=== PATIENT | female | born 1930 | race Caucasian/White ===

== ENCOUNTER 2019-11-10 19:12 | Inpatient (IN) ==
--- OUTSIDE RECORDS SUMMARY | 2019-11-10 19:19 | External Medical Summary | Continuity of Care Document ---
:1930 Author Name George Rock, Provider Address Unavailable Unavailable , Care Team Providers Name Role Phone Edgardo Woo M.D. 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 Refills: 0 Warfarin Sodium 1 MG Oral Tablet; TAKE 2 TABLETS DAILY. Refills: 0 Potassium Chloride ER 10 MEQ Oral Capsul e Extended Release; TAKE 1 CAPSULE DAILY. Start: 23-Feb-2015 Refills: 0 Protonix 40 MG Oral Tablet Delayed Release; TAKE 1 TABLET DA SENDY. Start: 23-Feb-2015 Refills: 0 Premarin 0.625 MG/GM Vaginal Cream Start : 23-Feb-2015 Refills: 0 Fluocinonide 0.05 % External Ointment; A PPLY SPARINGLY TO AFFECTED AREA(S) TWICE DAILY Shweta Ortega Start: 21-Jan-2015 Quantity: 1 60 GM Tube Refills: 2 Carvedilol 12.5 MG Oral Tablet; TAKE 1 TABLET TWICE DAILY. Refills: 0 Lisinopril 10 MG Oral Tablet; TAKE 1 TABLET DAILY DIRECTE D. Refills: 0 Triamcinolone Acetonide 0.1 % External O intment; APPLY AND GENTLY MASSAGE INTO AFFECTED AREA(S) TWICE DAILY. Shweta Woo Start: 06-Apr-2016 Quantity: 3 80 GM Tube Refills: 3 Betamethasone Dipropionate 0.05 % Embossing Press Operator al Ointment; APPLY SPARINGLY TO AFFECTED AREA(S) TWICE DAILY Shweta Ortega Start: 23-Feb-2015 Quantity: 1 50 GM Tube Refills: 2 Procedures History of Vaginal Hysterectomy Status: Completed History of Dilation And Curettage Status : Completed History of Tonsillectomy Status: Complet ed History of Appendectomy Status: Complete d Immunizations Immunizations not documented Family History Mother Family history of Diabetes Mellitus (V18.0) Status: Active Father Family history of Acute Myocardial Infarction (V17.3) Status : Active Social History - Smoking Status Tobacco smoking consumption unknown Never smoked tobacco Plan of Treatment Planned Observations Planned Goals not documented Results No Known Results Results not documented Encounters Appointment; Edgardo Woo M.D. 16-May-2016 10:30 Encounter Diagnosis: Problem not documented
--- NOTE | 2019-11-10 19:28 | Emergency Department Note ---
Impression & Plan Acute GI bleeding, Syncope, Elevated INR ED Provider Note NAME: AUDRA BROOKS AGE: 89 SEX: F : 1930 ARRIVES VIA: Ambulance INFORMANT: Patient, EMS ED PROVIDER(S): Sukhi Hebert DO CHIEF COMPLAINT: Syncope HPI: Patient is an 89-year-old female per report from EMS is a DNR/DNI on hospice who comes in for syncopal episode while on the toilet. EMS notes that she was having dark tarry stool. Patient denies any chest pain shortness of breath nausea vomiting or diarrhea. Denies any dysuria urgency or frequency. She is unsure why she is here. She also does not know why she is on hospice. No other exacerbating or remitting factors. ROS: See above HPI for pertinent positives & negatives. Review of systems was otherwise limited secondary to mentation PAST MEDICAL HISTORY:CVA, GI bleed PAST SURGICAL HISTORY:See Below FAMILY HISTORY:See Below SOCIAL HISTORY:See Below HOME MEDICATIONS:See Below ALLERGIES:See Below VITALS:See Below PHYSICAL EXAMINATION: GENERAL: Sitting up in bed, alert, ill-appearing, malnourished EYE EXAM: normal conjunctiva. OROPHARYNX: no exudate, no erythema, lips, buccal mucosa, and tongue normal and mucous membranes are moist NECK: supple, no nuchal rigidity, no adenopathy, non-tender LUNGS: Diminished bilaterally. Normal chest wall mechanics HEART: no murmurs, S1 normal and S2 normal ABDOMEN: abdomen soft, non-tender, normo-active bowel sounds, no masses, no rebound or guarding. RECTAL: Dark heme tarry stools UPPER EXTREMITIES: upper extremities are grossly normal. LOWER EXTREMITIES: No pitting edema. NEURO EXAM: Awake alert oriented to person and place but not year moving all extremities MEDICAL DECISION MAKING: Patient is an 89-year-old female who presents the ER for syncopal episode associated with dark tarry stools. Patient was found to be hypoxic and hypotensive. Upon arrival she was brought in by EMS. She is a DNR/DNI on hospice. She was found to be hypoxic. She does have dark tarry stools. IV was established blood work was obtained and shows leukocytosis 12,000. Hemoglobin was down to 8.8 off of baseline of 10. INR and PT were undetectable. PTT was elevated at 99. BMP with mild hypokalemia. LFTs bilirubin was unremarkable. Patient was typed and screened. Patient was given IV vitamin K. Prolonged conversation with son and hospice telephone operator. They were able to set up oxygen at home but with the significant elevation INR and taking no blood thinners in the GI bleed of the syncope and hypotension did discuss with the hospitalist for observation to reverse the INR and for close monitoring to make sure that this returns to normal. We will hold on any other aggressive measures or treatment. Triage Nursing notes reviewed. Prior medical records reviewed Vital Signs: reviewed and remarkable for hypoxia Differential diagnosis: Differential diagnosis includes etiologies such as vasovagal event, infection, hypoglycemia, electrolyte abnormalities, cardiac sources, intracerebral event, toxicologic, neurologic, as well as others were entertained. ER treatment provided: See below Diagnostics interpreted by me: ECG: Sinus tachycardia rate of 105 Left axis Poor baseline T wave flattening in the high lateral leads Cardiac Monitoring: Sinus rhythm rate of 75 Laboratory studies: As stated above and show below. Imaging studies: Portable AP upright 1 view of the chest shows no focal infiltrate or pneumothorax. Consultation(s): Dr. Pineda ED COURSE: Procedures: none Critical Care: None Past Med/Surg History Social History Smoking Status: Unknown if ever smoked Allergies Allergies Allergy/AdvReac Type Severity Reaction Status Date / Time Bactrim Allergy UNKNOWN Verified 09/11/13 16:33 naproxen Allergy UNKNOWN Verified 11/10/19 20:04 oxybutynin Allergy UNKNOWN Verified 11/10/19 20:04 sulfamethoxazole Allergy UNKNOWN Verified 11/10/19 20:04 trimethoprim Allergy UNKNOWN Verified 11/10/19 20:04 Home Meds Home Medications Medication Instructions Recorded Confirmed amiodarone 200 mg PO DAILY 11/10/19 11/10/19 lisinopril 5 mg PO DAILY 11/10/19 11/10/19 omeprazole 20 mg PO BID 11/10/19 11/10/19 sertraline 100 mg PO DAILY 11/10/19 11/10/19 Results & Data (ED) Vital Signs Vital Signs - 24 hr 11/10/19 19:12 11/10/19 19:22 11/10/19 19:58 Temperature 36.8 C Temperature Source Oral Pulse Rate 99 H Pulse Rate [Left] Pulse Rate from SpO2 Sensor Pulse Rhythm [Left] Respiratory Rate 15 12 Respiratory Effort / Characteristics Non-Labored Respiratory Depth Normal Respiratory Pattern Regular Blood Pressure 136/85 136/85 Blood Pressure [Right Arm] Blood Pressure Mean 102 95 Blood Pressure Mean [Right Arm] Pulse Oximetry 85 L 97 Oxygen Delivery Method Room Air Nasal Cannula Oxygen Flow Rate 2 Sepsis Recent Fever Within 48 Hours No Sepsis New/Unexplained Change in Mental Status No Sepsis Action Taken by Nursing No Action Required 11/10/19 20:07 11/10/19 20:09 11/10/19 20:15 Temperature Temperature Source Pulse Rate Pulse Rate [Left] 81 Pulse Rate from SpO2 Sensor 82 90 Pulse Rhythm [Left] Regular Respiratory Rate 19 20 15 Respiratory Effort / Characteristics Non-Labored Respiratory Depth Normal Respiratory Pattern Regular Blood Pressure 119/66 81/55 L Blood Pressure [Right Arm] 119/66 Blood Pressure Mean 76 61 Blood Pressure Mean [Right Arm] 83 Pulse Oximetry 100 100 100 Oxygen Delivery Method Nasal Cannula Oxygen Flow Rate 2 Sepsis Recent Fever Within 48 Hours Sepsis New/Unexplained Change in Mental Status Sepsis Action Taken by Nursing 11/10/19 20:30 11/10/19 20:45 Temperature Temperature Source Pulse Rate 75 Pulse Rate [Left] Pulse Rate from SpO2 Sensor 67 75 Pulse Rhythm [Left] Respiratory Rate 18 15 Respiratory Effort / Characteristics Respiratory Depth Respiratory Pattern Blood Pressure 112/53 L 129/58 L Blood Pressure [Right Arm] Blood Pressure Mean 78 90 Blood Pressure Mean [Right Arm] Pulse Oximetry 99 100 Oxygen Delivery Method Oxygen Flow Rate Sepsis Recent Fever Within 48 Hours Sepsis New/Unexplained Change in Mental Status Sepsis Action Taken by Nursing Laboratory Data Result diagrams: 11/10/19 19:59 11/10/19 19:59 Lab Results 11/10/19 11/10/19 11/10/19 Range/Units 19:41 19:59 19:59 WBC 12.84 H (4.8-10.8) K/uL RBC 3.55 L (4.2-5.4) M/uL Hgb 8.8 L (12.0-16.0) g/dL Hct 28.1 L (37-47) % MCV 79.2 L (80-100) fL MCH 24.8 L (25-34) pg MCHC 31.3 L (32-36) g/dL RDW Std Deviation 51.3 H (36.4-46.3) fL RDW Coeff of Avtar 17.8 H (11.5-14.5) % Plt Count 241 (130-400) K/uL MPV 9.1 (7.4-10.4) fL Immature Gran % (Auto) 0.5 % Neut % (Auto) 83.0 % Lymph % (Auto) 9.7 % Billings % (Auto) 6.2 % Eos % (Auto) 0.5 % Baso % (Auto) 0.1 % Immature Gran # (Auto) 0.06 H (0.00-0.02) K/uL Neut # (Auto) 10.66 H (1.4-6.5) K/uL Lymph # (Auto) 1.25 (1.2-3.4) K/uL Billings # (Auto) 0.80 H (0.11-0.59) K/uL Eos # (Auto) 0.06 (0-0.5) K/uL Baso # (Auto) 0.01 (0-0.2) K/uL PT (9.0-12.0) Seconds INR (0.9-1.1) APTT (21.0-31.0) Seconds PTT Ratio Sodium (136-145) mmol/L Potassium (3.5-5.1) mmol/L Chloride (98-107) mmol/L Carbon Dioxide (21-32) mmol/L Anion Gap (3-11) BUN (7-18) mg/dl Creatinine (0.6-1.2) mg/dl Est Cr Clr Drug Dosing Est GFR ( Amer) Est GFR (Non-Af Amer) BUN/Creatinine Ratio (10-20) Glucose (70-99) mg/dl Calcium (8.5-10.1) mg/dl Total Bilirubin (0.2-1) mg/dl AST (15-37) U/L ALT (12-78) U/L Alkaline Phosphatase (45-117) U/L Total Protein (6.4-8.2) gm/dl Albumin (3.4-5.0) gm/dl Globulin (2.5-4.0) gm/dl Albumin/Globulin Ratio (0.9-2) POC Stool Occult Blood Positive A (Negative) Blood Type O Positive Antibody Screen NEGATIVE 11/10/19 11/10/19 Range/Units 19:59 19:59 WBC (4.8-10.8) K/uL RBC (4.2-5.4) M/uL Hgb (12.0-16.0) g/dL Hct (37-47) % MCV (80-100) fL MCH (25-34) pg MCHC (32-36) g/dL RDW Std Deviation (36.4-46.3) fL RDW Coeff of Avtar (11.5-14.5) % Plt Count (130-400) K/uL MPV (7.4-10.4) fL Immature Gran % (Auto) % Neut % (Auto) % Lymph % (Auto) % Billings % (Auto) % Eos % (Auto) % Baso % (Auto) % Immature Gran # (Auto) (0.00-0.02) K/uL Neut # (Auto) (1.4-6.5) K/uL Lymph # (Auto) (1.2-3.4) K/uL Billings # (Auto) (0.11-0.59) K/uL Eos # (Auto) (0-0.5) K/uL Baso # (Auto) (0-0.2) K/uL PT > 90.0 H (9.0-12.0) Seconds INR > 9.7 H* (0.9-1.1) APTT 88.3 H* (21.0-31.0) Seconds PTT Ratio 3.2 Sodium 143 (136-145) mmol/L Potassium 2.6 L (3.5-5.1) mmol/L Chloride 105 (98-107) mmol/L Carbon Dioxide 31 (21-32) mmol/L Anion Gap 7.0 (3-11) BUN 25 H (7-18) mg/dl Creatinine 0.97 (0.6-1.2) mg/dl Est Cr Clr Drug Dosing Not Reportable Est GFR ( Amer) 60.9 Est GFR (Non-Af Amer) 52.5 BUN/Creatinine Ratio 26.3 H (10-20) Glucose 135 H (70-99) mg/dl Calcium 8.1 L (8.5-10.1) mg/dl Total Bilirubin 0.4 (0.2-1) mg/dl AST 51 H (15-37) U/L ALT 38 (12-78) U/L Alkaline Phosphatase 83 (45-117) U/L Total Protein 5.8 L (6.4-8.2) gm/dl Albumin 2.3 L (3.4-5.0) gm/dl Globulin 3.5 (2.5-4.0) gm/dl Albumin/Globulin Ratio 0.7 L (0.9-2) POC Stool Occult Blood (Negative) Blood Type Antibody Screen Administered Medications Discontinued Medications Sodium Chloride (Nss) 500 mls @ 999 mls/hr IV .Q31M ALEE Stop: 11/10/19 20:00 Last Infusion: 11/10/19 20:45 Dose: 0 mls/hr Documented by: [id number] Admin: 11/10/19 20:09 Dose: 999 mls/hr Documented by: [id number] Phytonadione 10 mg/ Sodium (Chloride) 51 mls @ 102 mls/hr IV ONE ONE Stop: 11/10/19 21:16 Last Admin: 11/10/19 21:36 Dose: 102 mls/hr Documented by: [id number] Discharge Plan Visit Data Chief Complaint: Syncope Stated Complaint: SYNCOPE, DARK TARRY STOOL ED Provider: Sukhi Hebert Discharge Problem: Acute GI bleeding, Syncope, Elevated INR Forms Stand Alone Forms: [facility] Prescriptions Prescriptions: No Action amiodarone 200 mg tablet 200 mg PO DAILY RF: 0 sertraline 100 mg tablet 100 mg PO DAILY RF: 0 omeprazole 20 mg capsule,delayed release(DR/EC) 20 mg PO BID RF: 0 lisinopril 5 mg tablet 5 mg PO DAILY RF: 0 Discharge Problem: Syncope Qualifiers: Syncope type: unspecified Qualified Code(s): R55 - Syncope and collapse
[2019-11-10] MEDS ORDERED: SODIUM CHLORIDE 0.9% 500 ML IV SCH (19:30)
[2019-11-10 20:11] LABS: Basophils # (auto) 0.01 K/uL (0-0.2); Basophils % (auto) 0.1 %; Eosinophils # (auto) 0.06 K/uL (0-0.5); Eosinophils % (auto) 0.5 %; Hematocrit (blood only) 28.1 % (37-47); Hemoglobin 8.8 g/dL (12.0-16.0); Immature Granulocytes # (auto) 0.06 K/uL (0.00-0.02); Immature Granulocytes % (auto) 0.5 %; Lymphocytes # (auto) 1.25 K/uL (1.2-3.4); Lymphocytes % (auto) 9.7 %; Mean Corpuscular Hemoglobin 24.8 pg (25-34); Mean Corpuscular Hgb Conc 31.3 g/dL (32-36); Mean Corpuscular Volume 79.2 fL (80-100); Mean Platelet Volume 9.1 fL (7.4-10.4); Monocytes % (auto) 6.2 %; Neutrophils # (auto) 10.66 K/uL (1.4-6.5); Platelet Count 241 K/uL (130-400); RDW Coefficient of Variation 17.8 % (11.5-14.5); RDW Standard Deviation 51.3 fL (36.4-46.3); Red Blood Count 3.55 M/uL (4.2-5.4); White Blood Count 12.84 K/uL (4.8-10.8)
[2019-11-10 20:29] LABS: Alanine Aminotransferase 38 U/L (12-78); Albumin Level 2.3 gm/dl (3.4-5.0); Aspartate Aminotransferase 51 U/L (15-37); BUN Creatinine Ratio 26.3 (10-20); Blood Urea Nitrogen 25 mg/dl (7-18); Calcium 8.1 mg/dl (8.5-10.1); Carbon Dioxide 31 mmol/L (21-32); Chloride 105 mmol/L (98-107); Est GFR (African American) 60.9; Est GFR (Non-African American) 52.5; Glucose 135 mg/dl (70-99); Potassium 2.6 mmol/L (3.5-5.1); Sodium 143 mmol/L (136-145)
[2019-11-10 20:31] LABS: Partial Thromboplastin Ratio 3.2; Prothrombin Time > 90.0 Seconds (9.0-12.0)
[2019-11-10 20:32] LABS: Albumin Globulin Ratio 0.7 (0.9-2); Alkaline Phosphatase 83 U/L (45-117); Bilirubin,Total 0.4 mg/dl (0.2-1); Globulin 3.5 gm/dl (2.5-4.0); Total Protein 5.8 gm/dl (6.4-8.2)
[2019-11-10 20:38] LABS: Partial Thromboplastin Time 88.3 Seconds (21.0-31.0)
--- NOTE | 2019-11-10 20:39 | XRay Report ---
XR chest 1V portable HISTORY: Syncope. COMPARISON: Chest 05/28/2019. FINDINGS: The lungs are clear. The heart is normal in size. No pleural effusions. No pneumothorax. Ol d, healed right-sided rib fractures. IMPRESSION: No acute process. ACT 112: Negative or not required by law. Electronically signed by: Danilo Gutierrez M.D. 11/10/2019 8:38 PM
[2019-11-10] MEDS ORDERED: PHYTONADIONE 10 MG in SODIUM CHLORIDE 0.9% 50 ML IV ONE (20:47)
[2019-11-10 21:30] LABS: INR > 9.7 (0.9-1.1)
[2019-11-10] MEDS ORDERED: PANTOPRAZOLE BOLUS/DRIP 1 EA IV STA (22:27)
--- NOTE | 2019-11-10 22:29 | History & Physical Report ---
Date of Service November 10, 2019 Assessment & Plan (1) Unresponsiveness: Secondary to transient hypotension secondary to UGIB (differentials include gastritis, PUD) Coagulopathy despite cessation of Coumadin Rx last week Anemia secondary to above hx CAD status post stent PVD as per records atrial fibrillation/atrial flutter, rate controlled, INR persistently elevated despite being off Coumadin for a week hypertension, stable history embolic CVA Hyperglycemia rule out DM Hypokalemia Medical telemetry IV PPI No GI consultations for endoscopy and no CT imaging as per son's request upon discussion of goals of care. Serial H&H, transfuse PRBC if hemoglobin less than 8. Check hemoglobin A1c Replace electrolytes DVT prophylaxis. SCDs when INR less than 2 DNR Patient son requesting updates from providers. Mr. Jareth Duncan, contact #[phone]. Text document was generated using [employer] voice recognition software. It may contain grammatical or spelling errors. Kindly contact undersigned for clarification of any documentation item in question. History of Present Illness Chief Complaint: Syncope Primary Care Provider: Alberto Huertas DO History obtained from patient, family, and records. Medical history significant for CAD status post stent, PVD as per records, atrial fibrillation/atrial flutter currently off Coumadin, hypertension, hyperlipidemia, history CVA, skin cancer as per records, hx GERD. Remote confinement 2013 under orthopedic service for elective right knee surgery. 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 Patient discharged on Coumadin. Since August 2019, consistent supratherapeutic INR noted on outpatient testing. Poor appetite the last few weeks as per son. 2 weeks ago, patient brought to [facility] ER for GI bleed. Found to have a high INR. PCP and family decided to discontinue Coumadin and to make arrangements for home hospice. Few days ago patient complaining of achy tolerable abdominal discomfort. Melanotic stools noted the last 2 days. Some nausea, no emesis as per son. Patient became unresponsive as she was being helped to the commode by family tonight. Staring blankly into space for about 5 minutes as per son. No witnessed GTC seizures. Patient denies chest pain, S OB. Usual headache symptoms since stroke as per patient. SBP reported to be 50s upon arrival of EMS as per records. Patient brought to the ER for evaluation. Vitamin K given for INR greater than 9.7. 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 Surgical History : Knee surgery, appendectomy, tonsillectomy/adenoidectomy, hysterectomy Family History : Heart disease, stroke Personal/Social history : Non-smoker, no EtOH intake, retired [employer] employee Allergies Allergy/AdvReac Type Severity Reaction Status Date / Time Bactrim Allergy UNKNOWN Verified 09/11/13 16:33 naproxen Allergy UNKNOWN Verified 11/10/19 20:04 oxybutynin Allergy UNKNOWN Verified 11/10/19 20:04 sulfamethoxazole Allergy UNKNOWN Verified 11/10/19 20:04 trimethoprim Allergy UNKNOWN Verified 11/10/19 20:04 Home Medications Home Medications Medication Instructions Recorded Confirmed Type amiodarone 200 mg PO DAILY 11/10/19 11/10/19 History lisinopril 5 mg PO DAILY 11/10/19 11/10/19 History omeprazole 20 mg PO BID 11/10/19 11/10/19 History sertraline 100 mg PO DAILY 11/10/19 11/10/19 History Past Med/Surg History Social History Smoking Status: Unknown if ever smoked Review of Systems Review of Systems: As per HPI, all 10 systems reviewed, all other ROS negative Physical Exam Physical Exam: GENERAL: Comfortable, slightly hard of hearing, oriented to day and year, no respiratory distress SKIN: Pallor , warm HEENT: Pale palpebral conjunctivae, no ptosis, dry buccal mucosa NECK : Supple, no tenderness CHEST : CTA, no tenderness HEART : Irregular, systolic murmur ABDOMEN: Some distention, no overt tenderness EXTREMITIES : Minimal LE swelling, no LE tenderness, no other conspicuous deformities noted NEUROLOGIC : Coherent, no facial asymmetry, mild hearing impairment, no other gross focality Results & Data Results & Data ([facility]) Vital Signs (Past 12 Hours) Vital Signs Temp Pulse Pulse Resp BP BP Pulse Ox 11/10/19 22:03 15 102/47 L 99 11/10/19 21:45 80 16 108/56 L 99 11/10/19 21:30 81 17 112/64 99 11/10/19 21:15 76 12 115/56 L 100 11/10/19 21:00 77 13 115/65 100 11/10/19 20:45 75 15 129/58 L 100 11/10/19 20:30 18 112/53 L 99 11/10/19 20:15 15 81/55 L 100 11/10/19 20:09 81 20 119/66 100 11/10/19 20:07 19 119/66 100 11/10/19 19:58 97 11/10/19 19:22 12 136/85 11/10/19 19:12 36.8 C 99 H 15 136/85 85 L Laboratory Results Laboratory Results WBC 12.84 K/uL (4.8-10.8) H 11/10/19 19:59 RBC 3.55 M/uL (4.2-5.4) L 11/10/19 19:59 Hgb 8.8 g/dL (12.0-16.0) L 11/10/19 19:59 Hct 28.1 % (37-47) L 11/10/19 19:59 MCV 79.2 fL (80-100) L 11/10/19 19:59 MCH 24.8 pg (25-34) L 11/10/19 19:59 MCHC 31.3 g/dL (32-36) L 11/10/19 19:59 RDW Std Deviation 51.3 fL (36.4-46.3) H 11/10/19 19:59 RDW Coeff of Avtar 17.8 % (11.5-14.5) H 11/10/19 19:59 Plt Count 241 K/uL (130-400) 11/10/19 19:59 MPV 9.1 fL (7.4-10.4) 11/10/19 19:59 Immature Gran % (Auto) 0.5 % 11/10/19 19:59 Neut % (Auto) 83.0 % 11/10/19 19:59 Lymph % (Auto) 9.7 % 11/10/19 19:59 Vance % (Auto) 6.2 % 11/10/19 19:59 Eos % (Auto) 0.5 % 11/10/19 19:59 Baso % (Auto) 0.1 % 11/10/19 19:59 Immature Gran # (Auto) 0.06 K/uL (0.00-0.02) H 11/10/19 19:59 Neut # (Auto) 10.66 K/uL (1.4-6.5) H 11/10/19 19:59 Lymph # (Auto) 1.25 K/uL (1.2-3.4) 11/10/19 19:59 Vance # (Auto) 0.80 K/uL (0.11-0.59) H 11/10/19 19:59 Eos # (Auto) 0.06 K/uL (0-0.5) 11/10/19 19:59 Baso # (Auto) 0.01 K/uL (0-0.2) 11/10/19 19:59 PT > 90.0 Seconds (9.0-12.0) H 11/10/19 19:59 INR > 9.7 (0.9-1.1) H* 11/10/19 19:59 APTT 88.3 Seconds (21.0-31.0) H* 11/10/19 19:59 PTT Ratio 3.2 11/10/19 19:59 Sodium 143 mmol/L (136-145) 11/10/19 19:59 Potassium 2.6 mmol/L (3.5-5.1) L 11/10/19 19:59 Chloride 105 mmol/L (98-107) 11/10/19 19:59 Carbon Dioxide 31 mmol/L (21-32) 11/10/19 19:59 Anion Gap 7.0 (3-11) 11/10/19 19:59 BUN 25 mg/dl (7-18) H 11/10/19 19:59 Creatinine 0.97 mg/dl (0.6-1.2) 11/10/19 19:59 Est Cr Clr Drug Dosing Not Reportable 11/10/19 19:59 Est GFR ( Amer) 60.9 11/10/19 19:59 Est GFR (Non-Af Amer) 52.5 11/10/19 19:59 BUN/Creatinine Ratio 26.3 (10-20) H 11/10/19 19:59 Glucose 135 mg/dl (70-99) H 11/10/19 19:59 Calcium 8.1 mg/dl (8.5-10.1) L 11/10/19 19:59 Total Bilirubin 0.4 mg/dl (0.2-1) 11/10/19 19:59 AST 51 U/L (15-37) H 11/10/19 19:59 ALT 38 U/L (12-78) 11/10/19 19:59 Alkaline Phosphatase 83 U/L (45-117) 11/10/19 19:59 Total Protein 5.8 gm/dl (6.4-8.2) L 11/10/19 19:59 Albumin 2.3 gm/dl (3.4-5.0) L 11/10/19 19:59 Globulin 3.5 gm/dl (2.5-4.0) 11/10/19 19:59 Albumin/Globulin Ratio 0.7 (0.9-2) L 11/10/19 19:59 POC Stool Occult Blood Positive (Negative) A 11/10/19 19:41 Blood Type O Positive 11/10/19 19:59 Antibody Screen NEGATIVE 11/10/19 19:59 Diagnostic Findings Chest x-ray : No acute process EKG as per my interpretation : Rate 105, A. fib, LAD, LAFB, inferior infarct, diffuse T wave flattening
[2019-11-10] MEDS ORDERED: PANTOprazole 80 MG in DEXTROSE 5% 100 ML IV STA (22:31)
[2019-11-10 22:56] LABS: Magnesium 1.4 mg/dl (1.8-2.4)
[2019-11-10] MEDS ORDERED: TRAMADOL HCL 50 MG TABLET PO PRN (23:29)
[2019-11-10] MEDS ORDERED: POTASSIUM CHLORIDE 40 MEQ in SODIUM CHLORIDE 0.45 % 1,000 ML IV ONE (23:29)
[2019-11-10] MEDS ORDERED: ACETAMINOPHEN 325 MG TAB PO PRN (23:29)
[2019-11-10] MEDS ORDERED: MoRPHine SULFATE 2 MG/ML CARP IV PRN (23:30)
[2019-11-10] MEDS: POTASSIUM CHLORIDE 20 MEQ TABCR PO STA ×2 (23:31→23:57)
[2019-11-11] MEDS: PANTOprazole 40 MG in DEXTROSE 5% 100 ML IV SCH ×5 (00:08→19:13)
[2019-11-11] MEDS: POTASSIUM CHLORIDE / WTR 10 MEQ/100 ML PLCT IV SCH ×11 (00:11→12:04)
[2019-11-11] MEDS: MAGNESIUM SULFATE / D5W 1 GM/100 ML BAG IV SCH ×3 (00:12→02:14)
[2019-11-11 00:50] LABS: Hematocrit (blood only) 28.3 % (37-47); Hemoglobin 8.8 g/dL (12.0-16.0)
[2019-11-11 05:45] LABS: Eosinophils # (auto) 0.09 K/uL (0-0.5); Eosinophils % (auto) 0.8 %; Hematocrit (blood only) 22.7 % (37-47); Hemoglobin 7.2 g/dL (12.0-16.0); Immature Granulocytes # (auto) 0.05 K/uL (0.00-0.02); Immature Granulocytes % (auto) 0.4 %; Lymphocytes # (auto) 1.66 K/uL (1.2-3.4); Lymphocytes % (auto) 14.2 %; Mean Corpuscular Hgb Conc 31.7 g/dL (32-36); Mean Corpuscular Volume 78.8 fL (80-100); Mean Platelet Volume 9.1 fL (7.4-10.4); Monocytes # (auto) 0.63 K/uL (0.11-0.59); Monocytes % (auto) 5.4 %; Neutrophils # (auto) 9.29 K/uL (1.4-6.5); Neutrophils % (auto) 79.2 %; Platelet Count 196 K/uL (130-400); RDW Coefficient of Variation 17.8 % (11.5-14.5); RDW Standard Deviation 51.5 fL (36.4-46.3); Red Blood Count 2.88 M/uL (4.2-5.4); White Blood Count 11.72 K/uL (4.8-10.8)
[2019-11-11 06:03] LABS: INR 1.4 (0.9-1.1); Prothrombin Time 14.3 Seconds (9.0-12.0)
[2019-11-11 06:17] LABS: RBC Morphology Unremarkable
[2019-11-11] MEDS ORDERED: SODIUM CHLORIDE 0.9% 250 ML IV PRN (06:17)
[2019-11-11 06:20] LABS: BUN Creatinine Ratio 28.3 (10-20); Calcium 7.8 mg/dl (8.5-10.1); Creatinine Clr Calc Pharmacy 40.6 ml/min; Est GFR (African American) 69.4; Est GFR (Non-African American) 59.9; Magnesium 2.7 mg/dl (1.8-2.4); Potassium 2.8 mmol/L (3.5-5.1)
[2019-11-11 06:37] LABS: Estimated Average Glucose 134 mg/dl; Hemoglobin A1C 6.3 % (4.5-5.6)
[2019-11-11] MEDS: AMIODARONE 200 MG TAB PO SCH (08:14)
[2019-11-11] MEDS: SERTRALINE HCL 100 MG TABLET PO SCH (08:15)
[2019-11-11] MEDS ORDERED: lisinopriL 5 MG TAB PO SCH (09:00)
--- NOTE | 2019-11-11 09:38 | Electrocardiogram Report ---
Test Reason : Blood Pressure : / mmHG Vent. Rate : 105 BPM Atrial Rate : 097 BPM P-R Int : 000 ms QRS Dur : 090 ms QT Int : 504 ms P-R-T Axes : 000 -09 053 degrees QTc Int : 666 ms Poor data quality, interpretation may be adversely affected Sinus tachycardia Septal infarct , age undetermined Inferior infarct , age undetermined Abnormal ECG When compared with ECG of 20-AUG-2013 10:19, Significant changes have occurred Confirmed by Terry Newton ([id number]) on 11/11/2019 9:37:57 AM Referred By: REFERRED SELF Confirmed By:Terry Newton
--- NOTE | 2019-11-11 12:48 | Hospitalist Progress Note ---
Date of Service November 11, 2019 Assessment & Plan (1) Unresponsiveness: Unresponsive secondary to transient hypotension secondary to UGIB (differentials include gastritis, PUD) Acute blood loss anemia secondary to GI bleed Supratherapeutic INR/ coagulopathy (secondary to past coumadin use, poor oral intake) No GI consultations for endoscopy and no CT imaging as per son's request upon discussion of goals of care. Required transfusion of 1 pRBC, Hgb this AM 7.2, now above 9, cont. 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 to GI bleed - hold lisinopril Hyperglycemia rule out DM Check hemoglobin A1c DVT prophylaxis. SCDs when INR less than 2 DNR Disposition: pt home w/ home hospice prior to admission, after stabilization of bleed, and profound electrolyte abnormalities, likely return home Patient's son, Mr. Jareth Duncan, can be contacted at . Updated on pt' clinical status. Admission and Anticipated Discharge Date Admission Date: November 10, 2019 Subjective Pt is lying in bed, in NAD. Appears tired. She is alert and oriented, says lately she could not eat much, would get nausea after eating. Denies any fever, chills, chest pain, shortness of breath, abd. pain, nausea, vomiting. Hgb this AM 7.2, received 1 unit of pRBCs, Hgb then over 9. Review of Systems Review of Systems: All systems reviewed & are unremarkable except as noted in HPI & below Constitutional: no fever and no chills Respiratory: no cough and no dyspnea Cardiovascular: no chest pain and no palpitations Gastrointestinal: + melena; no abdominal pain, no nausea and no vomiting Physical Exam Physical Exam: GENERAL: elderly thin pale female, lying in bed in NAD HEENT: NC/AT, EOMI, pale palpebral conjunctivae NECK : Supple, no tenderness CHEST : CTAB, no wheezing or rhonchi noted HEART : Irregular, + soft systolic murmur ABDOMEN: Some distention, no overt tenderness EXTREMITIES : no LE edema, warm well perfused NEUROLOGIC : alert and oriented, answers questions appropriately, no facial asymmetry, speech fluent SKIN: Pallor , warm Results & Data Results & Data ([facility]) Vital Signs (Past 12 Hours) Vital Signs Temp Pulse Pulse Resp BP BP Pulse Ox 11/11/19 12:20 36.9 C 72 18 132/79 98 11/11/19 11:30 36.8 C 75 18 101/62 97 11/11/19 11:03 36.8 C 75 18 101/62 97 11/11/19 10:30 36.6 C 73 18 103/65 98 11/11/19 09:30 36.5 C 76 18 107/66 98 11/11/19 09:00 36.5 C 76 16 92/58 L 93 11/11/19 08:45 36.7 C 87 18 119/64 95 11/11/19 08:44 36.7 C 87 18 119/64 95 11/11/19 08:30 36.7 C 90 18 97/53 L 97 11/11/19 07:31 37.2 C 77 18 86/52 L 97 11/11/19 03:41 36.6 C 81 18 96/60 L 98 11/11/19 02:51 75 Laboratory Results 11/11/19 11/11/19 11/11/19 Range/Units 05:19 05:19 05:19 WBC 11.72 H (4.8-10.8) K/uL RBC 2.88 L (4.2-5.4) M/uL Hgb 7.2 L (12.0-16.0) g/dL Hct 22.7 L (37-47) % MCV 78.8 L (80-100) fL MCH 25.0 (25-34) pg MCHC 31.7 L (32-36) g/dL RDW Std Deviation 51.5 H (36.4-46.3) fL RDW Coeff of Avtar 17.8 H (11.5-14.5) % Plt Count 196 (130-400) K/uL MPV 9.1 (7.4-10.4) fL Immature Gran % (Auto) 0.4 % Neut % (Auto) 79.2 % Lymph % (Auto) 14.2 % Gladwin % (Auto) 5.4 % Eos % (Auto) 0.8 % Baso % (Auto) 0.0 % Immature Gran # (Auto) 0.05 H (0.00-0.02) K/uL Neut # (Auto) 9.29 H (1.4-6.5) K/uL Lymph # (Auto) 1.66 (1.2-3.4) K/uL Gladwin # (Auto) 0.63 H (0.11-0.59) K/uL Eos # (Auto) 0.09 (0-0.5) K/uL Baso # (Auto) 0.00 (0-0.2) K/uL RBC Morphology Unremarkable PT 14.3 H (9.0-12.0) Seconds INR 1.4 H (0.9-1.1) APTT (21.0-31.0) Seconds PTT Ratio Sodium 142 (136-145) mmol/L Potassium 2.8 L (3.5-5.1) mmol/L Chloride 105 (98-107) mmol/L Carbon Dioxide 32 (21-32) mmol/L Anion Gap 5.0 (3-11) BUN 25 H (7-18) mg/dl Creatinine 0.87 (0.6-1.2) mg/dl Est Cr Clr Drug Dosing 40.6 Est GFR ( Amer) 69.4 Est GFR (Non-Af Amer) 59.9 BUN/Creatinine Ratio 28.3 H (10-20) Glucose 131 H (70-99) mg/dl Estimat Average Glucose mg/dl Hemoglobin A1c (4.5-5.6) % Calcium 7.8 L (8.5-10.1) mg/dl Magnesium 2.7 H (1.8-2.4) mg/dl Total Bilirubin (0.2-1) mg/dl AST (15-37) U/L ALT (12-78) U/L Alkaline Phosphatase (45-117) U/L Total Protein (6.4-8.2) gm/dl Albumin (3.4-5.0) gm/dl Globulin (2.5-4.0) gm/dl Albumin/Globulin Ratio (0.9-2) TSH (0.300-4.500) uIu/ml POC Stool Occult Blood (Negative) Blood Type Antibody Screen Crossmatch 11/11/19 11/11/19 11/10/19 Range/Units 05:19 00:03 19:59 WBC (4.8-10.8) K/uL RBC (4.2-5.4) M/uL Hgb 8.8 L (12.0-16.0) g/dL Hct 28.3 L (37-47) % MCV (80-100) fL MCH (25-34) pg MCHC (32-36) g/dL RDW Std Deviation (36.4-46.3) fL RDW Coeff of Avtar (11.5-14.5) % Plt Count (130-400) K/uL MPV (7.4-10.4) fL Immature Gran % (Auto) % Neut % (Auto) % Lymph % (Auto) % Gladwin % (Auto) % Eos % (Auto) % Baso % (Auto) % Immature Gran # (Auto) (0.00-0.02) K/uL Neut # (Auto) (1.4-6.5) K/uL Lymph # (Auto) (1.2-3.4) K/uL Gladwin # (Auto) (0.11-0.59) K/uL Eos # (Auto) (0-0.5) K/uL Baso # (Auto) (0-0.2) K/uL RBC Morphology PT (9.0-12.0) Seconds INR (0.9-1.1) APTT (21.0-31.0) Seconds PTT Ratio Sodium 143 (136-145) mmol/L Potassium 2.6 L (3.5-5.1) mmol/L Chloride 105 (98-107) mmol/L Carbon Dioxide 31 (21-32) mmol/L Anion Gap 7.0 (3-11) BUN 25 H (7-18) mg/dl Creatinine 0.97 (0.6-1.2) mg/dl Est Cr Clr Drug Dosing Not Reportable Est GFR ( Amer) 60.9 Est GFR (Non-Af Amer) 52.5 BUN/Creatinine Ratio 26.3 H (10-20) Glucose 135 H (70-99) mg/dl Estimat Average Glucose 134 mg/dl Hemoglobin A1c 6.3 H (4.5-5.6) % Calcium 8.1 L (8.5-10.1) mg/dl Magnesium 1.4 L (1.8-2.4) mg/dl Total Bilirubin 0.4 (0.2-1) mg/dl AST 51 H (15-37) U/L ALT 38 (12-78) U/L Alkaline Phosphatase 83 (45-117) U/L Total Protein 5.8 L (6.4-8.2) gm/dl Albumin 2.3 L (3.4-5.0) gm/dl Globulin 3.5 (2.5-4.0) gm/dl Albumin/Globulin Ratio 0.7 L (0.9-2) TSH 2.620 (0.300-4.500) uIu/ml POC Stool Occult Blood (Negative) Blood Type Antibody Screen Crossmatch 11/10/19 11/10/19 11/10/19 Range/Units 19:59 19:59 19:59 WBC 12.84 H (4.8-10.8) K/uL RBC 3.55 L (4.2-5.4) M/uL Hgb 8.8 L (12.0-16.0) g/dL Hct 28.1 L (37-47) % MCV 79.2 L (80-100) fL MCH 24.8 L (25-34) pg MCHC 31.3 L (32-36) g/dL RDW Std Deviation 51.3 H (36.4-46.3) fL RDW Coeff of Avtar 17.8 H (11.5-14.5) % Plt Count 241 (130-400) K/uL MPV 9.1 (7.4-10.4) fL Immature Gran % (Auto) 0.5 % Neut % (Auto) 83.0 % Lymph % (Auto) 9.7 % Gladwin % (Auto) 6.2 % Eos % (Auto) 0.5 % Baso % (Auto) 0.1 % Immature Gran # (Auto) 0.06 H (0.00-0.02) K/uL Neut # (Auto) 10.66 H (1.4-6.5) K/uL Lymph # (Auto) 1.25 (1.2-3.4) K/uL Gladwin # (Auto) 0.80 H (0.11-0.59) K/uL Eos # (Auto) 0.06 (0-0.5) K/uL Baso # (Auto) 0.01 (0-0.2) K/uL RBC Morphology PT > 90.0 H (9.0-12.0) Seconds INR > 9.7 H* (0.9-1.1) APTT 88.3 H* (21.0-31.0) Seconds PTT Ratio 3.2 Sodium (136-145) mmol/L Potassium (3.5-5.1) mmol/L Chloride (98-107) mmol/L Carbon Dioxide (21-32) mmol/L Anion Gap (3-11) BUN (7-18) mg/dl Creatinine (0.6-1.2) mg/dl Est Cr Clr Drug Dosing Est GFR ( Amer) Est GFR (Non-Af Amer) BUN/Creatinine Ratio (10-20) Glucose (70-99) mg/dl Estimat Average Glucose mg/dl Hemoglobin A1c (4.5-5.6) % Calcium (8.5-10.1) mg/dl Magnesium (1.8-2.4) mg/dl Total Bilirubin (0.2-1) mg/dl AST (15-37) U/L ALT (12-78) U/L Alkaline Phosphatase (45-117) U/L Total Protein (6.4-8.2) gm/dl Albumin (3.4-5.0) gm/dl Globulin (2.5-4.0) gm/dl Albumin/Globulin Ratio (0.9-2) TSH (0.300-4.500) uIu/ml POC Stool Occult Blood (Negative) Blood Type O Positive Antibody Screen NEGATIVE Crossmatch See Detail 11/10/19 Range/Units 19:41 WBC (4.8-10.8) K/uL RBC (4.2-5.4) M/uL Hgb (12.0-16.0) g/dL Hct (37-47) % MCV (80-100) fL MCH (25-34) pg MCHC (32-36) g/dL RDW Std Deviation (36.4-46.3) fL RDW Coeff of Avtar (11.5-14.5) % Plt Count (130-400) K/uL MPV (7.4-10.4) fL Immature Gran % (Auto) % Neut % (Auto) % Lymph % (Auto) % Gladwin % (Auto) % Eos % (Auto) % Baso % (Auto) % Immature Gran # (Auto) (0.00-0.02) K/uL Neut # (Auto) (1.4-6.5) K/uL Lymph # (Auto) (1.2-3.4) K/uL Gladwin # (Auto) (0.11-0.59) K/uL Eos # (Auto) (0-0.5) K/uL Baso # (Auto) (0-0.2) K/uL RBC Morphology PT (9.0-12.0) Seconds INR (0.9-1.1) APTT (21.0-31.0) Seconds PTT Ratio Sodium (136-145) mmol/L Potassium (3.5-5.1) mmol/L Chloride (98-107) mmol/L Carbon Dioxide (21-32) mmol/L Anion Gap (3-11) BUN (7-18) mg/dl Creatinine (0.6-1.2) mg/dl Est Cr Clr Drug Dosing Est GFR ( Amer) Est GFR (Non-Af Amer) BUN/Creatinine Ratio (10-20) Glucose (70-99) mg/dl Estimat Average Glucose mg/dl Hemoglobin A1c (4.5-5.6) % Calcium (8.5-10.1) mg/dl Magnesium (1.8-2.4) mg/dl Total Bilirubin (0.2-1) mg/dl AST (15-37) U/L ALT (12-78) U/L Alkaline Phosphatase (45-117) U/L Total Protein (6.4-8.2) gm/dl Albumin (3.4-5.0) gm/dl Globulin (2.5-4.0) gm/dl Albumin/Globulin Ratio (0.9-2) TSH (0.300-4.500) uIu/ml POC Stool Occult Blood Positive A (Negative) Blood Type Antibody Screen Crossmatch Medications Administered Current Inpatient Medications Acetaminophen (Tylenol) 650 mg PO Q4H PRN PRN Reason: Pain or Fever Stop: 12/10/19 23:28 Amiodarone HCl (Cordarone) 200 mg PO DAILY PENDING SALE TO [facility] Stop: 12/11/19 08:59 Last Admin: 11/11/19 08:14 Dose: Not Given Documented by: Pantoprazole Sodium 40 mg/ (Dextrose) 100 mls @ 20 mls/hr IV Q5H ALEE Stop: 12/10/19 22:29 Last Admin: 11/11/19 08:13 Dose: 20 mls/hr Documented by: Promethazine HCl 12.5 mg/ (Sodium Chloride) 50.5 mls @ 202 mls/hr IV Q6H PRN PRN Reason: Nausea And Vomiting Stop: 12/10/19 23:28 Potassium Chloride 40 meq/ (Sodium Chloride) 1,020 mls @ 60 mls/hr IV .Q17H ONE Stop: 11/11/19 16:28 Last Infusion: 11/11/19 12:25 Dose: 60 mls/hr Documented by: Sodium Chloride (Nss) 250 mls @ 15 mls/hr IV .[id number] PRN PRN Reason: For Transfusion Stop: 11/11/19 16:18 Potassium Chloride (K Fredy / Wtr) 10 meq in 100 mls @ 100 mls/hr IV Q1H PENDING SALE TO [facility] Stop: 11/11/19 12:59 Last Admin: 11/11/19 12:04 Dose: 100 mls/hr Documented by: Lisinopril (Zestril) 5 mg PO DAILY PENDING SALE TO [facility] Stop: 12/11/19 08:59 Last Admin: 11/11/19 08:14 Dose: Not Given Documented by: Morphine Sulfate (Morphine Sulfate) 2 mg IV Q4H PRN PRN Reason: Pain Stop: 11/24/19 23:29 Sertraline HCl (Zoloft) 100 mg PO DAILY PENDING SALE TO [facility] Stop: 12/11/19 08:59 Last Admin: 11/11/19 08:15 Dose: Not Given Documented by: Tramadol HCl (Ultram) 25 mg PO Q4H PRN PRN Reason: Pain Stop: 12/10/19 23:28
[2019-11-11 13:23] LABS: Hematocrit (blood only) 28.7 % (37-47); Hemoglobin 9.3 g/dL (12.0-16.0)
[2019-11-11 14:02] LABS: BUN Creatinine Ratio 26.7 (10-20); Calcium 7.9 mg/dl (8.5-10.1); Creatinine Clr Calc Pharmacy 37.2 ml/min; Est GFR (African American) 62.4; Est GFR (Non-African American) 53.9; Potassium 4.6 mmol/L (3.5-5.1)
[2019-11-11] MEDS: PROMETHAZINE HCL 12.5 MG in SODIUM CHLORIDE 0.9% 50 ML IV PRN (23:36)
[2019-11-12] MEDS: PANTOprazole 40 MG in DEXTROSE 5% 100 ML IV SCH ×5 (00:16→23:14)
[2019-11-12] MEDS ORDERED: SUCRALFATE 1 GM/10 ML UDC PO PRN (05:46)
[2019-11-12 06:28] LABS: Hematocrit (blood only) 25.6 % (37-47); Hemoglobin 8.2 g/dL (12.0-16.0)
[2019-11-12 07:06] LABS: BUN Creatinine Ratio 30.9 (10-20); Calcium 7.6 mg/dl (8.5-10.1); Creatinine Clr Calc Pharmacy 43.5 ml/min; Est GFR (African American) 74.6; Est GFR (Non-African American) 64.3; Magnesium 1.8 mg/dl (1.8-2.4); Phosphorus 1.6 mg/dl (2.5-4.9); Potassium 3.8 mmol/L (3.5-5.1)
[2019-11-12] MEDS: SERTRALINE HCL 100 MG TABLET PO SCH (08:21)
[2019-11-12] MEDS: AMIODARONE 200 MG TAB PO SCH (08:21)
[2019-11-12] MEDS ORDERED: PANTOprazole 40 MG TAB PO SCH (09:00)
[2019-11-12] MEDS ORDERED: SODIUM CHLORIDE 0.9% 250 ML IV PRN (11:59)
--- NOTE | 2019-11-12 12:01 | Hospitalist Progress Note ---
Date of Service November 12, 2019 Assessment & Plan (1) Acute GI bleeding: Admitted with complaint of melanotic stool/syncope Continue to have dark tarry and bowel movements Vitals been stable, Discussed with patient's son/POA: Does not want any GI evaluations: Endoscopy or colonoscopy Patient was at hospice care at home Recurrent GI bleed: Had a similar episode 2 weeks ago requiring hospital admission INR was elevated ~10 Due to episode GI bleed, patient is not a candidate for anticoagulation Treated supportively Did not require blood transfusion, Was thought to be diverticular bleed no CAT scan or GI evaluation was done as family did not want any invasive p rocedures Coumadin was discontinued, Patient readmitted with 2 episode of melanotic stool at home, on admission INR was elevated 9.7 Received vitamin K 10 mg IV in ER INR 1.4 today Acute blood loss anemia: hb dropped noted from 98 .2 Secondary to acute GI bleed/melena Repeat H&H ordered Son/POA is okay for blood transfusion is needed/transfusion consent signed by son Per current guideline, goal to transfuse if hemoglobin less than 7 or acute ongoing GI bleed with hemodynamic instability Coagulopathy: Was on Coumadin in the past, Given vitamin K Monitor INR History of A. fib/embolic CVA Imaging discontinued secondary to recurrent GI bleed Syncope/possible secondary to hypotension/acute blood loss No further episode since admission Family not interested in detail work-up CODE STATUS: DNR/DNI Disposition: Patient was at home with hospice Plan to return back home with hospice when medically stable Admission and Anticipated Discharge Date Admission Date: November 10, 2019 Subjective Patient had multiple dark bowel movement this morning, Evaluated at bedside, Patient reports of feeling cold, feels sick in the stomach No complaint of shortness of breath, vitals remained stable so far Review of Systems Review of Systems: All systems reviewed & are unremarkable except as noted in HPI & below Constitutional: + chills; no fever Gastrointestinal: + abdominal pain, + nausea, + blood in stools and + melena; no vomiting Physical Exam Constitutional: WD/WN, vitals as above + ill appearing and + thin Eyes: PERRL, conjunctivae normal, anicteric sclerae ENMT: external ear and nose normal, oropharynx normal Neck: trachea midline, no thyromegaly Respiratory: normal respiratory effort, lungs clear to auscultation Cardiovascular: RRR, no murmur, no edema Gastrointestinal (Abdomen): Percussion/Palpation: abdomen soft; abdomen nontender Diminished bowel sound Neurologic: PERRL, EOMI, accommodation nl, no face palsy, no dysarthria Baseline dementia? Psychiatric: Orientation: alert (Oriented to place and person, baseline dementia) Affect: + flat affect Results & Data Results & Data ([facility]) Vital Signs (Past 12 Hours) Vital Signs Temp Pulse Pulse Resp BP Pulse Ox 11/12/19 11:40 36.6 C 78 18 154/82 H 98 11/12/19 07:45 78 11/12/19 07:39 36.4 C L 75 18 126/73 97 11/12/19 03:27 37.1 C 74 18 132/71 96 11/12/19 02:38 77
[2019-11-12 12:11] LABS: Hematocrit (blood only) 26.5 % (37-47); Hemoglobin 8.5 g/dL (12.0-16.0)
[2019-11-12] MEDS ORDERED: POTASSIUM PHOS 3 MMOL/1 ML INFUSION IV STA (12:19)
[2019-11-12 12:26] LABS: Prothrombin Time 10.9 Seconds (9.0-12.0)
[2019-11-12] MEDS ORDERED: D5W AND NSS 1,000 ML IV SCH (12:30)
[2019-11-12] MEDS ORDERED: POTASSIUM PHOSPHATE 9 MMOL in SODIUM CHLORIDE 0.9% 250 ML IV ONE (12:45)
[2019-11-12] MEDS ORDERED: PANTOprazole 80 MG in DEXTROSE 5% 100 ML IV ONE (12:45)
[2019-11-13] MEDS: PROMETHAZINE HCL 12.5 MG in SODIUM CHLORIDE 0.9% 50 ML IV PRN ×2 (01:18→08:45)
[2019-11-13] MEDS: D5W AND NSS 1,000 ML IV SCH ×2 (01:37→13:19)
[2019-11-13] MEDS: PANTOprazole 40 MG in DEXTROSE 5% 100 ML IV SCH ×2 (04:54→08:45)
[2019-11-13 06:01] LABS: Hematocrit (blood only) 25.4 % (37-47); Hemoglobin 8.1 g/dL (12.0-16.0)
--- NOTE | 2019-11-13 15:29 | Hospitalist Progress Note ---
Date of Service November 13, 2019 Assessment & Plan (1) Acute GI bleeding: No further episode in last 24 hours Not had any bowel movements, IV Protonix been discontinued Started on Protonix p.o. Diet advanced, patient has been tolerating well Discussed with patient's son over the phone, if patient remains stable next 24 hours, no bloody bowel movement/no evidence of GI bleed plan to discharge home tomorrow Admitted with complaint of melanotic stool/syncope As per patient's son/POA: Does not want any GI evaluations: Endoscopy or colonoscopy Patient was at hospice care at home No evidence of GI bleed in the past 24 hours, Stable H&H, Acute blood loss anemia: hb dropped noted from 98.2 Hemoglobin has been stable since/did not requiring blood transfusion Secondary to acute GI bleed/melena Coagulopathy: Was on Coumadin in the past, Given vitamin K INR 1 Resolution of GI bleed, Patient is and not a candidate for anticoagulation, risk of bleeding, untoward adverse effect outweighed the benefit History of A. fib/embolic CVA Coumadin was discontinued due to GI bleed Not a candidate for anticoagulation Syncope/possible secondary to hypotension/acute blood loss No further episode since admission Family not interested in detail work-up CODE STATUS: DNR/DNI Disposition: Patient was at home with hospice As a very supportive family, Tentative discharge home tomorrow Patient will resume home hospice with [facility] on discharge Admission and Anticipated Discharge Date Admission Date: November 10, 2019 Subjective Did not had any bowel movement since yesterday, No evidence of any GI bleed, Denies of any abdominal pain, Diet advanced this morning tolerating well Review of Systems Review of Systems: All systems reviewed & are unremarkable except as noted in HPI & below Gastrointestinal: no abdominal pain, no nausea, no vomiting and no melena Physical Exam Constitutional: WD/WN, vitals as above + ill appearing and + thin Eyes: PERRL, conjunctivae normal, anicteric sclerae ENMT: external ear and nose normal, oropharynx normal Neck: trachea midline, no thyromegaly Respiratory: normal respiratory effort, lungs clear to auscultation Cardiovascular: RRR, no murmur, no edema Gastrointestinal (Abdomen): Percussion/Palpation: abdomen soft; abdomen nontender Neurologic: PERRL, EOMI, accommodation nl, no face palsy, no dysarthria Psychiatric: Orientation: alert and oriented to person (Baseline dementia, oriented to person only, occasional confusion/sundowning effect noted, more appropriateAlert this morning) Affect: + flat affect Results & Data Results & Data ([facility]) Vital Signs (Past 12 Hours) Vital Signs Temp Pulse Pulse Resp BP Pulse Ox 11/13/19 11:30 37.0 C 85 20 120/72 97 11/13/19 09:01 83 11/13/19 07:44 37.0 C 81 20 128/72 96
[2019-11-13] MEDS: PANTOprazole 40 MG TAB PO SCH (21:43)
[2019-11-14 06:15] LABS: Hemoglobin 8.3 g/dL (12.0-16.0)
[2019-11-14] MEDS: PANTOprazole 40 MG TAB PO SCH (09:01)
[2019-11-14] MEDS: AMIODARONE 200 MG TAB PO SCH (09:14)
[2019-11-14] MEDS: SERTRALINE HCL 100 MG TABLET PO SCH (09:14)
[2019-11-14] MEDS: PROMETHAZINE HCL 12.5 MG in SODIUM CHLORIDE 0.9% 50 ML IV PRN (13:54)
--- NOTE | 2019-11-14 18:27 | Discharge Summary ---
Date of Service November 14, 2019 Admission HPI Per Admitting Provider History obtained from patient, family, and records. Medical history significant for CAD status post stent, PVD as per records, atrial fibrillation/atrial flutter currently off Coumadin, hypertension, hyperlipidemia, history CVA, skin cancer as per records, hx GERD. Remote confinement 2013 under orthopedic service for elective right knee surgery. Last May 2019 patient confined at [facility] for embolic CVA secondary to new onset atrial flutter. Patient discharged on Coumadin. Since August 2019, consistent supratherapeutic INR noted on outpatient testing. Poor appetite the last few weeks as per son. 2 weeks ago, patient brought to [facility] ER for GI bleed. Found to have a high INR. PCP and family decided to discontinue Coumadin and to make arrangements for home hospice. Few days ago patient complaining of achy tolerable abdominal discomfort. Melanotic stools noted the last 2 days. Some nausea, no emesis as per son. Patient became unresponsive as she was being helped to the commode by family tonight. Staring blankly into space for about 5 minutes as per son. No witnessed GTC seizures. Patient denies chest pain, S OB. Usual headache symptoms since stroke as per patient. SBP reported to be 50s upon arrival of EMS as per records. Patient brought to the ER for evaluation. Vitamin K given for INR greater than 9.7. 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 Surgical History : Knee surgery, appendectomy, tonsillectomy/adenoidectomy, hysterectomy Family History : Heart disease, stroke Personal/Social history : Non-smoker, no EtOH intake, retired [employer] employee Principal Diagnosis Blood in stool /GI bleed /Anemia Discharge Exam Constitutional WD/WN, vitals as above + ill appearing and + thin Eyes PERRL, conjunctivae normal, anicteric sclerae ENMT external ear and nose normal, oropharynx normal Neck trachea midline, no thyromegaly Respiratory normal respiratory effort, lungs clear to auscultation Cardiovascular RRR, no murmur, no edema Gastrointestinal (Abdomen) Percussion/Palpation: abdomen soft; abdomen nontender Neurologic PERRL, EOMI, accommodation nl, no face palsy, no dysarthria Psychiatric Orientation: alert and oriented to person (Baseline dementia, oriented to person only, occasional confusion/sundowning effect noted, more appropriateAlert this morning) Affect: + flat affect Discharge Data Allergies Allergy/AdvReac Type Severity Reaction Status Date / Time Bactrim Allergy UNKNOWN Verified 09/11/13 16:33 naproxen Allergy UNKNOWN Verified 11/10/19 20:04 oxybutynin Allergy UNKNOWN Verified 11/10/19 20:04 sulfamethoxazole Allergy UNKNOWN Verified 11/10/19 20:04 trimethoprim Allergy UNKNOWN Verified 11/10/19 20:04 Consultations 11/10/19 21:36 ED Decision to Admit Stat 11/10/19 23:29 Consult Case Management - Discharge Planning Routine Hospital Course (1) Acute GI bleeding: GI bleed has resolved no dark stool for past 2 days tolerating diet no acute drop in H&H pt is stable to be discharged home will resume home hospice care on d/c Admitted with complaint of melanotic stool/syncope GI bleed possible due to coagulopathy with hx of anticoagulation , was on coumadin on admission INR > 9 given VIt K , leading to resolution of coagulopathy INR 1 no further episode of GI bleed for past 48 hrs Patient was at hospice care at home no GI evaluation /Endoscopy or colonoscopy was done as Pt's son NELSON wanted conservative approach only Acute blood loss anemia: hb dropped noted from 98.2 Hemoglobin has been stable since/did not requiring blood transfusion Coagulopathy: Was on Coumadin in the past, Given vitamin K INR 1 Resolution of GI bleed, Patient is and not a candidate for anticoagulation, risk of bleeding, untoward adverse effect outweighed the benefit History of A. fib/embolic CVA Coumadin was discontinued due to GI bleed Not a candidate for anticoagulation Syncope/possible secondary to hypotension/acute blood loss No further episode since admission Family not interested in detail work-up CODE STATUS: DNR/DNI Disposition: Patient was at home with hospice discharged home today Patient will resume home hospice with [facility] on discharge Total Time Total Time Spent Total Time Spent (In Minutes): 35 mins Total Time Includes: Examination of the Patient, Discharge Planning and Medication Reconciliation Discharge Plan Discharge Items Patient Disposition: Home - Home Health Services Reason For Visit: ANEMIA,GI BLEED Discharge Diagnosis: Blood in stool/GI bleed/anemia Activity: Resume your previous activity Non-emergency contact: Primary Care Provider Call non-emergency contact if: you have any medication questions Follow-up/Referrals: Alberto Huertas, [Primary Care Provider] - Diet: Regular Diet Texture: Pureed (blended smooth) Addtl Attending Provider Instructions: Do not take, aspirin, Motrin, Aleve Advil, ibuprofen, naproxen, avoid these [id number] pain medications belonging to the group called NSAIDs which can cause severe acid reflux, stomach ulcer leading to bleeding-dark stool/blood in stool Pending Studies at Discharge: No Stand-Alone Forms: My [facility], Smoking Cessation Medications and DC Order Prescriptions: New sucralfate 100 mg/mL Suspension 10 ml PO QID Qty: 420 RF: 2 Continued amiodarone 200 mg tablet 200 mg PO DAILY RF: 0 sertraline 100 mg tablet 100 mg PO DAILY RF: 0 omeprazole 20 mg capsule,delayed release(DR/EC) 20 mg PO BID RF: 0 lisinopril 5 mg tablet 5 mg PO DAILY RF: 0 Discharge Orders: Discharge Order (Routine); Ordered 11/14/19 Ordered By: Vivi Silverman Admission Data Admit Date/Time: 11/10/19 22:31 Attending Provider: Vivi Silverman Admit Provider: Gareth Thompson Primary Care Provider: Alberto Huertas Other Providers: Gareth Thompson Other Interventions: Discharge Summary Assessment (RN) Last Done: 11/14/19 12:58 DC Date/Time DO NOT enter until pt leaves facility: 11/14/19 16:28
== END 2019-11-14 16:28 | disposition hospice, home (50) | DRG 813 ==
LOC: ED 19:12 → 2N 22:31 → SUATTDRO 22:31 → 2N 23:05